=== PATIENT | female | born 1980 | race Caucasian/White ===

== ENCOUNTER 2023-06-04 10:34 | Outpatient (AMB) | payer OTHER, SELFPAY ==
--- NOTE | 2023-06-04 09:24 | MHC.OFFVISPS ---
Intake Vital Signs 06/04/23 09:24 Height 5 ft 7 in Weight 190 lb Intake Visit Reasons: Bipolar Depression, depression, SAVANNAH (generalized anxiety disorder), ADHD Utilities Operator Required: No Allergies No Known Allergies Allergy (Verified 06/04/23 09:26) Medication List - Last Reconciled 06/04/23 by Audra Corcoran APRN dextroamphetamine-amphetamine 15 mg ER (Adderall XR) 15 mg PO QAM dextroamphetamine-amphetamine 20 mg ER (Adderall XR) 20 mg PO .DAILY at noon ferrous gluconate 324 mg PO DAILY gabapentin 300 mg PO DAILY lamotrigine (Lamictal) 100 mg PO BID lamotrigine (Lamictal) 100 mg PO BID lithium carbonate ER 450 mg PO BEDTIME lurasidone (Latuda) 80 mg PO DAILY zolpidem ER (Ambien CR) 12.5 mg PO BEDTIME PRN HPI- Psychiatric Chief Complaint: Bipolar Depression, depression, SAVANNAH (generalized anxiety disorder), ADHD Intake Note: 42 yo with Bipolar disorder, SAVANNAH, and ADHD medication follow up re; lithium dose and continued ADHD symptoms HPI Narrative: Pt feels less depressed; she reports moderate anxiety; she feels the lithium has helped her mood and anxiety; she says it didn't help right away but about 4 weeks after she started it she felt much better and calmer. She was laid off from her job 8 weeks ago- it has been stressful financially but she enjoyed the time off and more time to be with son; more time for self care- she did more yoga and slept better. she has not used THC or ETOH for months.. she denies medical changes; no SI or HI; she expresses hope for future; she is eating well. she is active physically. she is need of a new therapist as her therapist moved. She has been taking it D and iron for vit d deficiency and anemai. 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 Pt describes cyclical depression - December- she gets very depressed, realized by age 29 that she had bipolar do; she reports 2020 hypo-shanelle, shopping, spending, sexual indiscretions Recently at [facility] - 12 day [facility] Apr 2019 after family tried to get her sectioned 34 for drug abuse because she was manic and using marijuana Failed Medication Trials: geodon - anxiety/weight/depression abilify-anxiety lamictal zoloft rx helped a little with depression prozac sleepy remeron ineffective cymbalta irrational manic antidepressants worsened lived in [place] took antidepressants during winter - in effective Panic attacks: Yes Agoraphobia: Yes Separation anxiety disorder: No Social phobia: No Specific phobia: No Hypochondriasis: No Body dysmorphic disorder: No Obsessive compulsive disorder: No Generalized anxiety: Yes Post traumatic stress disorder: No Acute stress disorder: No Previous psychiatric history: Yes Previous inpatient psychiatric hospitalization: Yes Other previous psychiatric treatment programs: partial hospital program History of suicidal ideation: Yes History of suicide attempt: No Medically hospitalized: No History of self injurious behavior: No History of violence: No Current/previous psychiatrist: [email or web address] Current/previous therapist: none Subjective Subjective Subjective Medication Compliance: Yes Side effects from medications: No Review of Systems Medical Review of Systems: unchanged Mental Status Exam Mental Status Exam Patient Appearance: Well Grooomed and Appropriate Patient Orientation: Person, Place, Time and Situation Level of Consciousness: Awake Patient Behavior: Appropriate and Crying (tearfulness when talking about less time with son) Mood Description: Calm and Constricted Affect Description: Calm and Constricted Patient Cognition Impaired: No Ability to Follow Directions: Good Speech Pattern: Clear and Coherent Memory Description: Intact Hallucinations: None Delusions: Not Present Thought Process: Intact, Goal Oriented and Linear Thought Content: positive for Intact and positive for Goal Oriented Judgement: Good Assessment and Plan Assessment & Plan (1) Generalized anxiety disorder: Code(s): F41.1 - Generalized anxiety disorder (2) Other technician terminal and repeater (current) drug therapy: Status: Acute Code(s): Z79.899 - Other technician terminal and repeater (current) drug therapy (3) Bipolar disorder with current episode depressed: Status: Acute Code(s): F31.30 - Bipolar disorder, current episode depressed, mild or moderate severity, unspecified (4) ADHD: Status: Acute Code(s): F90.9 - Attention-deficit hyperactivity disorder, unspecified type (5) Anemia: Status: Acute Code(s): D64.9 - Anemia, unspecified (6) Vitamin D deficiency: Status: Acute Code(s): E55.9 - Vitamin D deficiency, unspecified Plan discussed medications and need for lab work; reviewed lithium toxicity signs and symptoms; remineded re: need to stay hydrated; discussed duration of adderall XR - pt feels it works for approximately 6 hours- her work day is 11 hours- disucces increasing the second Er dose for longer duration. continue meds listed ordered labs if lithium level low will consider increase lamictal decreased to 100mg BID due to ineffective return in 6 weeks Medications: New dextroamphetamine-amphetamine 20 mg ER (Adderall XR) 20 mg PO .DAILY at noon 30 caps 0RF lithium carbonate ER 450 mg PO BEDTIME 30 tabs 1RF lurasidone (Latuda) must administer with food (at least 350 calories) 80 mg PO DAILY 30 tabs 3RF zolpidem ER (Ambien CR) 12.5 mg PO BEDTIME PRN 30 tabs 2RF sleep dextroamphetamine-amphetamine 15 mg ER (Adderall XR) 15 mg PO QAM 30 caps 0RF lamotrigine (Lamictal) 100 mg PO BID 60 tabs 1RF Orders: Orders Comprehensive [place]. Panel Fast Today Z79.899 - Other technician terminal and repeater (current) drug therapy [place] Today Z79.899 - Other custodial (current) drug therapy Vitamin D 25-OH (D2 and D3) Today E55.9 - Vitamin D deficiency, unspecified IRON PROFILE Today D64.9 - Anemia, unspecified Counseling and coordination of Care Pt. Self Management counseling: Exercise, Light exposure, Maintenance-social rhythm, Mindfulness, Mod caffeine/ETOH intake, Sleep hygiene, Behavior activation and Cognitive restructuring Details-Self Mgmt counseling: discussed strategies to reduce distress and guilt re: being away from son for long work days discussed cognitive strategies to manage ADHD Medication management counseling: Effectiveness, Side effects, Dosing range, Duration, Drug interaction and Adherence Diagnosis and Prognosis Counseling: Accuracy of diagnosis, Prognosis over time, Impact of diagnosis on life functions, Impact of family relationship, Problematic behaviors secondary to diagnosis and Adequacy of current interventions Details: I spent 45 minutes reviewing the record, seeing the patient and documenting in the medical record. Counseling provided to the patient/caregiver as outlined below. Addressed patient/caregiver concerns regarding current medication regime including effective adherence. Addressed patient/caregiver concerns regarding diagnosis and prognosis including accuracy of diagnosis, prognosis over time, impact of diagnosis. Addressed patient/caregiver concerns regarding impact of recent stressors. [facility] Medical History (Updated 06/04/23 @ 13:07 by Audra Corcoran APRN) Stroke with migraine Social History: lives with and teenage son; works FT Substance History: episodic THC use Trauma History: mother had bipolar disorder and childhood was chaotic Coding Level of Care Code Est Pt Level 5 (27540) Diagnoses Generalized anxiety disorder F41.1 Other custodial (current) drug therapy Z79.899 Bipolar disorder with current episode depressed F31.30 ADHD F90.9 Anemia D64.9 Vitamin D deficiency E55.9
== END 2023-06-04 11:45 | disposition home or self-care (01) ==
LOC: HO.HOP 10:35
PROVIDERS: PCP Nurse Practitioner Family; Visit Provider Clinical Nurse Specialist Psychiatric/Mental Health
DX: F41.1 Generalized anxiety disorder (principal); Z79.899 Other long term (current) drug therapy; F31.30 Bipolar disorder, current episode depressed, mild or moderate severity, unspecified; F90.9 Attention-deficit hyperactivity disorder, unspecified type; D64.9 Anemia, unspecified; E55.9 Vitamin D deficiency, unspecified
CPT/HCPCS: 99215

== ENCOUNTER → 2023-06-04 10:34 | Outpatient (BNVA) | payer OTHER, SELFPAY | PROVIDERS: PCP Nurse Practitioner Family; Visit Provider Clinical Nurse Specialist Psychiatric/Mental Health ==

== ENCOUNTER 2023-07-18 15:37 | Outpatient (AMB) | payer OTHER, SELFPAY ==
--- NOTE | 2023-07-18 09:19 | A.OFFPSYCH_ITS ---
Intake Intake Visit Reasons: depression, ADHD, anxiety, constipation Intake Note: 42 yo woman with bipolar disorder most recent episode depressed, ADHD, and SAVANNAH Corporate Development Manager Required: No Allergies No Known Allergies Allergy (Verified 06/04/23 09:26) Medication List - Last Reconciled 07/18/23 by Audra Corcoran APRN dextroamphetamine-amphetamine 15 mg ER (Adderall XR) 15 mg PO QAM dextroamphetamine-amphetamine 20 mg ER (Adderall XR) 20 mg PO QAM ferrous gluconate 324 mg PO DAILY gabapentin 300 mg PO DAILY lamotrigine (Lamictal) 100 mg PO BID lithium carbonate ER 600 mg (2 x 300 mg) PO BEDTIME lurasidone (Latuda) 80 mg PO DAILY zolpidem ER (Ambien CR) 12.5 mg PO BEDTIME PRN HPI- Psychiatric Chief Complaint: depression, ADHD, anxiety, constipation HPI Narrative: pt reports mood improved; more stable, less depressed; less anxious,; focus and recall not good since starting new job- often works 12+ hours a day. pt reports recurrence of constipatioon; she is reluctant to follow up with PCP and gastroeneterologist; she si taking miralax and senna. she denies SI or HI. no evidence of shanelle; no etoh or THC use. 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 Pt describes cyclical depression - December - July- she gets very depressed, realized by age 29 that she had bipolar do; she reports 2019 hypo-shanelle, shopping, spending, sexual indiscretions Recently at [facility] - 12 day [facility] Apr 2019 after family tried to get her sectioned 34 for drug abuse because she was manic and using marijuana Failed Medication Trials: indydon - anxiety/weight/depression abilify-anxiety lamictal zoloft rx helped a little with depression prozac sleepy remeron ineffective cymbalta irrational manic antidepressants worsened lived in [place] took antidepressants during winter - in effective Subjective Subjective Subjective Medication Compliance: Yes Side effects from medications: No Review of Systems Medical Review of Systems: unchanged Mental Status Exam Mental Status Exam Patient Appearance: Well Grooomed and Appropriate Patient Orientation: Person, Place, Time and Situation Level of Consciousness: Appropriate Patient Behavior: Appropriate and Cooperative Mood Description: Flat Affect Description: Flat Patient Cognition Impaired: No Ability to Follow Directions: Good Speech Pattern: Clear and Appropriate Memory Description: Intact Hallucinations: None Delusions: Not Present Thought Process: Intact and Goal Oriented Thought Content: positive for Intact and positive for Goal Oriented Judgement: Good Telehealth Telehealth Telehealth Platform: Other (please specify) (Practice Management [email or web address]) Location of provider rendering services: practice address Location of patient: other (work in [facility] ) Patient Identification confirmed using: Name, : Yes Telehealth method: video Patient verbally consented to treatment: Yes Patient verbally consented to billing insurance company: Yes Patient informed of any privacy concerns related to visit: Yes Minutes spent on Phone/Video with Pt.: 25 Assessment and Plan Assessment & Plan (1) ADHD: Status: Acute Qualifiers: Attention deficit-hyperactivity disorder type: combined inattentive- hyperactive Qualified Code(s): F90.2 - Attention-deficit hyperactivity disorder, combined type Code(s): F90.9 - Attention-deficit hyperactivity disorder, unspecified type (2) Bipolar disorder with current episode depressed: Status: Acute Qualifiers: Current episode severity: moderate Qualified Code(s): F31.32 - Bipolar disorder, current episode depressed, moderate Code(s): F31.30 - Bipolar disorder, current episode depressed, mild or moderate severity, unspecified Plan continue medications as is stay hydrated eaat fiber and 3 meals a day- fruits and vegetable buffered vitamin C 1000mg twice a day magnesium citrate 250 mg daily restart probiotic consider following FODMAP diet for no more than 6-8 weeks call PCP and or gastroenterology in 1- 2 weeks if constipation continues Medications: Refilled dextroamphetamine-amphetamine 15 mg ER (Adderall XR) Partial Fill upon patient request. 15 mg PO QAM 30 caps 0RF lamotrigine (Lamictal) 100 mg PO BID 60 tabs 1RF dextroamphetamine-amphetamine 20 mg ER (Adderall XR) Partial Fill upon patient request. 20 mg PO QAM 30 caps 0RF lithium carbonate ER 600 mg (2 x 300 mg) PO BEDTIME 60 tabs 1RF lurasidone (Latuda) must administer with food (at least 350 calories) 80 mg PO DAILY 30 tabs 3RF zolpidem ER (Ambien CR) 12.5 mg PO BEDTIME PRN 30 tabs 2RF sleep Counseling and coordination of Care Pt. Self Management counseling: Nutrition education and improvement and Problem solving Medication management counseling: Effectiveness, Side effects, Dosing range, Duration, Drug interaction, Adherence and Other (management of side effects) Diagnosis and Prognosis Counseling: Accuracy of diagnosis, Prognosis over time, Impact of diagnosis on life functions, Impact of family relationship, Problematic behaviors secondary to diagnosis and Adequacy of current interventions Details: I spent 45 minutes reviewing the record, seeing the patient and documenting in the medical record. Counseling provided to the patient/caregiver as outlined below. Addressed patient/caregiver concerns regarding current medication regime including effective adherence. Addressed patient/caregiver concerns regarding diagnosis and prognosis including accuracy of diagnosis, prognosis over time, impact of diagnosis. Addressed patient/caregiver concerns regarding impact of recent stressors. [facility] Medical History Stroke with migraine Social History: lives with and teenage son; works FT Substance History: episodic THC use Trauma History: mother had bipolar disorder and childhood was chaotic Coding Level of Care Code Tele Est Pt Level 5 (18236) Diagnoses Attention deficit hyperactivity disorder (ADHD), combined type F90.2 Attention deficit-hyperactivity disorder type: combined inattentive- hyperactive Bipolar affective disorder, currently depressed, moderate F31.32 Current episode severity: moderate
== END 2023-07-18 15:39 | disposition home or self-care (01) ==
LOC: HO.HOP 15:37
PROVIDERS: PCP Nurse Practitioner Family; Visit Provider Clinical Nurse Specialist Psychiatric/Mental Health
DX: F31.32 Bipolar disorder, current episode depressed, moderate (principal); F90.2 Attention-deficit hyperactivity disorder, combined type
CPT/HCPCS: 99214

== ENCOUNTER → 2023-07-18 15:37 | Outpatient (BNVA) | payer OTHER, SELFPAY | PROVIDERS: PCP Nurse Practitioner Family; Visit Provider Clinical Nurse Specialist Psychiatric/Mental Health ==

== ENCOUNTER 2023-10-17 17:50 | Outpatient (AMB) | payer OTHER, SELFPAY ==
--- NOTE | 2023-10-17 13:54 | A.OFFPSYCH_ITS ---
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 Allergies No Known Allergies Allergy (Verified 06/04/23 09:26) Medication List - Last Reconciled 10/17/23 by Audra Corcoran APRN dextroamphetamine-amphetamine 15 mg ER (Adderall XR) 15 mg PO QNOON dextroamphetamine-amphetamine 20 mg ER (Adderall XR) 20 mg PO QAM ferrous gluconate 324 mg PO DAILY gabapentin 300 mg PO DAILY lamotrigine (Lamictal) 100 mg PO BID lithium carbonate ER 600 mg (2 x 300 mg) PO BEDTIME lurasidone (Latuda) 80 mg PO DAILY zolpidem ER (Ambien CR) 12.5 mg PO BEDTIME PRN HPI- Psychiatric Chief Complaint: depression HPI Narrative: pt reports improvement in mood; she feels happy; she says mood stable; lithium seems to be a game changer. she is enjoying spending time with family and friends; she likes her job. she is sleeping well. no side effects; she is being evaluated fro endometriosis. no SI or Hi Labs done in June and will repeat in December Past Psychiatric History: Pt diagnosed with bipolar disorder and states she is anxious and that anxiety is a trigger for depression phase; she starts to isolate, stops functioning and has more negative thoughts, she has decrease interest in sex; stays in bed,; when she is manic she says she is overly emphatic, it feels pretty normal to her; she is typically an over-sharer and gets involved in others' business; she can be a little angry and irritable, high energy, she is very social normally, had an open marriage but not really ok with it; she is into yoga and meditation, 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 Pt describes cyclical depression - December - July- she gets very depressed, realized by age 29 that she had bipolar do; she reports 2019 hypo-shanelle, shopping, spending, sexual indiscretions Recently at [facility] - 12 day [facility] Apr 2019 after family tried to get her sectioned 34 for drug abuse because she was manic and using marijuana Failed Medication Trials: geodon - anxiety/weight/depression abilify-anxiety lamictal zoloft rx helped a little with depression prozac sleepy remeron ineffective cymbalta irrational manic antidepressants worsened lived in [place] took antidepressants during winter - in effective Subjective Subjective Subjective Medication Compliance: Yes Side effects from medications: No Review of Systems Medical Review of Systems: unchanged Mental Status Exam Mental Status Exam Patient Appearance: Well Grooomed and Appropriate Patient Orientation: Person, Place, Time and Situation Level of Consciousness: Awake Patient Behavior: Appropriate Mood Description: Calm, Happy and Appropriate Affect Description: Calm, Happy and Appropriate Patient Cognition Impaired: No Ability to Follow Directions: Good Speech Pattern: Clear Memory Description: Intact Hallucinations: None Delusions: Not Present Thought Process: Intact and Goal Oriented Thought Content: positive for Intact and positive for Goal Oriented Judgement: Good Telehealth Telehealth Telehealth Platform: Other (please specify) (Sk[employer]) Location of provider rendering services: practice address Location of patient: address on file Patient Identification confirmed using: Name, : Yes Telehealth method: video Patient verbally consented to treatment: Yes Patient verbally consented to billing insurance company: Yes Patient informed of any privacy concerns related to visit: Yes Minutes spent on Phone/Video with Pt.: 30 Assessment and Plan Assessment & Plan (1) Bipolar disorder, currently in remission: Status: Acute Code(s): F31.70 - Bipolar disorder, currently in remission, most recent episode unspecified (2) ADHD: Status: Acute Qualifiers: Attention deficit-hyperactivity disorder type: combined inattentive- hyperactive Qualified Code(s): F90.2 - Attention-deficit hyperactivity disorder, combined type Code(s): F90.9 - Attention-deficit hyperactivity disorder, unspecified type Medications: Refilled dextroamphetamine-amphetamine 20 mg ER (Adderall XR) Partial Fill upon patient request. 20 mg PO QAM 30 caps 0RF lithium carbonate ER 600 mg (2 x 300 mg) PO BEDTIME 60 tabs 1RF zolpidem ER (Ambien CR) 12.5 mg PO BEDTIME PRN 30 tabs 2RF sleep dextroamphetamine-amphetamine 15 mg ER (Adderall XR) Partial Fill upon patient request. 15 mg PO QNOON 30 caps 0RF lamotrigine (Lamictal) 100 mg PO BID 60 tabs 1RF lurasidone (Latuda) must administer with food (at least 350 calories) 80 mg PO DAILY 30 tabs 3RF Counseling and coordination of Care Details: I spent [] minutes reviewing the record, seeing the patient and documenting in the medical record. Counseling provided to the patient/caregiver as outlined below. Addressed patient/caregiver concerns regarding current medication regime including effective adherence. Addressed patient/caregiver concerns regarding diagnosis a nd prognosis including accuracy of diagnosis, prognosis over time, impact of diagnosis. Addressed patient/caregiver concerns regarding impact of recent stressors. [facility] Medical History Stroke with migraine Social History: lives with and teenage son; works FT Substance History: episodic THC use Trauma History: mother had bipolar disorder and childhood was chaotic Coding Level of Care Code Tele Est Pt Level 4 (32892) Diagnoses Bipolar disorder, currently in remission F31.70 Attention deficit hyperactivity disorder (ADHD), combined type F90.2 Attention deficit-hyperactivity disorder type: combined inattentive- hyperactive
== END 2023-10-17 17:51 | disposition home or self-care (01) ==
LOC: HO.HOP 17:50
PROVIDERS: PCP Nurse Practitioner Family; Visit Provider Clinical Nurse Specialist Psychiatric/Mental Health
DX: F31.70 Bipolar disorder, currently in remission, most recent episode unspecified (principal); F90.2 Attention-deficit hyperactivity disorder, combined type
CPT/HCPCS: 99214

== ENCOUNTER → 2023-10-17 17:50 | Outpatient (BNVA) | payer OTHER, SELFPAY | PROVIDERS: PCP Nurse Practitioner Family; Visit Provider Clinical Nurse Specialist Psychiatric/Mental Health | DX: F31.70 Bipolar disorder, currently in remission, most recent episode unspecified (principal); F90.2 Attention-deficit hyperactivity disorder, combined type ==

== ENCOUNTER 2024-04-23 13:36 | Outpatient (AMB) | payer OTHER, SELFPAY ==
--- NOTE | 2024-04-23 13:10 | MHC.OFFVISPS ---
Intake Intake Visit Reasons: depression Boat Crew Deck Hand Required: No Allergies No Known Allergies Allergy (Verified 06/04/23 09:26) Medication List - Last Reconciled 04/23/24 by Audra Corcoran APRN dextroamphetamine-amphetamine 15 mg ER (Adderall XR) 15 mg PO QNOON dextroamphetamine-amphetamine 20 mg ER (Adderall XR) 20 mg PO QAM ferrous gluconate 324 mg PO DAILY gabapentin 300 mg PO DAILY lamotrigine (Lamictal) 100 mg PO BID lithium carbonate ER 600 mg (2 x 300 mg) PO BEDTIME lurasidone (Latuda) 80 mg PO DAILY zolpidem ER (Ambien CR) 12.5 mg PO BEDTIME PRN HPI- Psychiatric Chief Complaint: depression HPI Narrative: pt reports feeliing more depressed over past 2-3 months; she had been using marijuana more but stopped one month ago; she reports depression feels a 5/10 . anxiety is moderate; she is compliant with meds; she got blood work done in mar 2024. labs reviewed; kidney and liver function good; tsh good; lithium level 0.6 in the theraputic range. 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 Pt describes cyclical depression - December - July- she gets very depressed, realized by age 29 that she had bipolar do; she reports 2019 hypo-shanelle, shopping, spending, sexual indiscretions Recently at [facility] - 12 day [facility] Apr 2019 after family tried to get her sectioned 34 for drug abuse because she was manic and using marijuana Failed Medication Trials: geodon - anxiety/weight/depression abilify-anxiety lamictal zoloft rx helped a little with depression prozac sleepy remeron ineffective cymbalta irrational manic antidepressants worsened lived in [place] took antidepressants during winter - in effective Subjective Subjective Subjective Medication Compliance: Yes Side effects from medications: No Review of Systems Medical Review of Systems: unchanged Mental Status Exam Mental Status Exam Patient Appearance: Well Grooomed and Appropriate Patient Orientation: Person, Place, Time and Situation Level of Consciousness: Awake, Appropriate and Alert Patient Behavior: Appropriate Mood Description: Flat Affect Description: Flat Patient Cognition Impaired: No Ability to Follow Directions: Good Speech Pattern: Clear and Appropriate Memory Description: Intact Hallucinations: None Delusions: Not Present Thought Process: Intact and Goal Oriented Thought Content: positive for Intact and positive for Goal Oriented Judgement: Good Telehealth Telehealth Telehealth Platform: Other (please specify) ([email or web address]) Location of provider rendering services: practice address Location of patient: address on file Patient Identification confirmed using: Name, : Yes Telehealth method: video Patient verbally consented to treatment: Yes Patient verbally consented to billing insurance company: Yes Patient informed of any privacy concerns related to visit: Yes Minutes spent on Phone/Video with Pt.: 35 Assessment and Plan Assessment & Plan (1) Bipolar disorder with current episode depressed: Status: Acute Qualifiers: Current episode severity: moderate Qualified Code(s): F31.32 - Bipolar disorder, current episode depressed, moderate Code(s): F31.30 - Bipolar disorder, current episode depressed, mild or moderate severity, unspecified (2) ADHD: Status: Acute Qualifiers: Attention deficit-hyperactivity disorder type: combined inattentive-hyperactive Qualified Code(s): F90.2 - Attention-deficit hyperactivity disorder, combined type Code(s): F90.9 - Attention-deficit hyperactivity disorder, unspecified type (3) SAVANNAH (generalized anxiety disorder): Status: Acute Code(s): F41.1 - Generalized anxiety disorder Plan start zoloft 25mg daily retrun in 3 months call sooner if symptoms worsen Medications: New sertraline (Zoloft) 25 mg PO DAILY 30 tabs 2RF Refilled dextroamphetamine-amphetamine 15 mg ER (Adderall XR) Partial Fill upon patient request. 15 mg PO QNOON 30 caps 0RF lamotrigine (Lamictal) 100 mg PO BID 60 tabs 1RF lithium carbonate ER 600 mg (2 x 300 mg) PO BEDTIME 60 tabs 1RF lurasidone (Latuda) must administer with food (at least 350 calories) 80 mg PO DAILY 30 tabs 3RF zolpidem ER (Ambien CR) 12.5 mg PO BEDTIME PRN 30 tabs 2RF sleep dextroamphetamine-amphetamine 20 mg ER (Adderall XR) Partial Fill upon patient request. 20 mg PO QAM 30 caps 0RF Counseling and coordination of Care Pt. Self Management counseling: Exercise, Maintenance-social rhythm, Mod caffeine/ETOH intake, Nutrition education and improvement, Sleep hygiene, Behavior activation, General coping skills and Problem solving Medication management counseling: Effectiveness, Side effects, Dosing range, Duration, Drug interaction and Adherence Diagnosis and Prognosis Counseling: Accuracy of diagnosis, Prognosis over time, Impact of diagnosis on life functions, Impact of family relationship, Problematic behaviors secondary to diagnosis and Adequacy of current interventions Details: I spent 40 minutes reviewing the record, seeing the patient and documenting in the medical record. Counseling provided to the patient/caregiver as outlined below. Addressed patient/caregiver concerns regarding current medication regime including effective adherence. Addressed patient/caregiver concerns regarding diagnosis and prognosis including accuracy of diagnosis, prognosis over time, impact of diagnosis. Addressed patient/caregiver concerns regarding impact of recent stressors. [facility] Medical History (Updated 04/23/24 @ 14:46 by Audra Corcoran APRN) Bipolar disorder, currently in remission Stroke with migraine Social History: lives with and teenage son; works FT Substance History: episodic THC use Trauma History: mother had bipolar disorder and childhood was chaotic Coding Level of Care Code Tele Est Pt Level 4 (41077) Diagnoses Bipolar affective disorder, currently depressed, moderate F31.32 Current episode severity: moderate Attention deficit hyperactivity disorder (ADHD), combined type F90.2 Attention deficit-hyperactivity disorder type: combined inattentive-hyperactive SAVANNAH (generalized anxiety disorder) F41.1
--- OUTSIDE RECORDS SUMMARY | 2024-04-23 14:01 | XMS_ITS | Patient Health Record ---
Author Organization [facility] Address [address] [place] [address] Care Team Providers Care Dental Laboratory Assistant Name Role Phone Ivana, Julia Primary Care Provider Unavailabl e Reason For Referral No Information Medications Medication SIG (Take, Route, Frequency, Duration) Notes Start Date End Date Status Ibuprofen 600 MG 1 tablet with food o r milk as needed Orally Three times a day Active ProAir HFA 108 (90 Base) MCG/ACT 1 puff as needed Inhalation every 4 hrs Active NexIUM 20 MG 1 capsule Orally Onc e a day Active Lunesta 3 MG 1 tablet immediately before bedtime Orally Once a day Active lamoTRIgine 100 MG 1 tablet Orally Once a day Active Claritin 10 MG 1 tablet Orally Once a day Active Acidophilus - as directed Orally Active Diclofenac Sodium 1 % 4 grams Transderma l to painful area of foot Twice a day for 30 day(s) Active Latuda 80 MG 1 tablet with food O rally Once a day Active Gabapentin 300 MG 1 capsule Orally Onc e a day Active Flovent Diskus 100 MCG/BLIST 1 puff Inhalation Twice a day Active Problems Problem Type SNOMED Code ICD Code Onset Dates Problem Status W/U Status Risk Notes Problem [id number] Equinus deformity of right foot (M21.6X1) Active confirmed Problem [id number] Equinus deformity of left foot (M21.6X2) Active confirmed Plan Of Treatment Pending Test Test Name Order Date X ray : Foot, left 3v 01/10/2020 X ray : Foot, right 3v 01/10/2020 INJ TENDON SHEATH/LIGAMENT/FASCIA 2019 INJ TENDON SHEATH/LIGAMENT/FASCIA 2019 Pneumati walking boot prefab 02/14/2020 Insurance Providers Payer Name Payer Address Payer Phone Subscriber Number Group Number Insured Name Patient Relationship to Insured Coverage Start Date Coverage End Date [facility] [address] [address] [place] [address] [phone] [id number] Brooklyn Falk Self - patient is the insured Medications Administered Medication Instructions Date of Administration Dosage Notes Dexamethasone 01/10/2020 4 mg Dexamethasone 03/15/2020 Kenalog 01/10/2020 40 mg Kenalog 03/15/2020 Medical (General) History Medical History History ICD Code allergic rhinitis anxiety asthma bipolar depression cataplexy and narcolepsy chronic migraine chronic sinusitis cigarette smoker deviated nasal septum gastro-esophageal reflux hypermobility of joint hypersomnia insomnia obese other disorders of iron metabolism periodic limb movement disorder restless leg syndrome Surgical History Surgery Date(Month/Year) precancerous lesions removed from cervix 1995
--- OUTSIDE RECORDS SUMMARY | 2024-04-23 14:01 | XMS_ITS | Clinical Summary ---
Author Organization [facility] Address [address] [place] [address] Care Team Providers Care Marketing Consultant Name Role Phone Julia Heath NP Primary Care Provider [phone] Social History Tobacco Use Types Packs/Day Years Used Date Smoking Tobacco: Never Assessed Sex and Gender Information Value Date Recorded Sex Assigned at Not on file Gender Identity Not on file Sexual Orientation Not on file Plan of Treatment Health Maintenance Due Date Last Done Comments Hepatitis C Virus Screening 1979 HIV Screening 08/17/1992 DTaP/Tdap/Td Vaccines (1 - Tdap) 08/17/1998 Hepatitis B Vaccines (1 of 3 - 19+ 3-dose series) 08/17/1998 COVID-19 Vaccine ( - 2023-2 5 season) 2023 HPV Vaccines Aged Out No longer eligi ble based on patient's age to complete this topic Pneumococcal Vaccine: Pediat sherlyn (0-5 Years) and At-Risk Patients (6 to 49 Years) Aged Out No longer eligible b ased on patient's age to complete this topic Care Teams Marketing Consultant Relationship Specialty Start Date End Date Julia Heath NP [facility] [place] [address] PCP - General
--- OUTSIDE RECORDS SUMMARY | 2024-04-23 14:02 | XMS_ITS | Clinical Summary ---
Author Organization [facility] Address [address] [place] [address] Care Team Providers Care Textile Machinery Instructor Name Role Phone IvanaJulia NP Primary Care Provider [phone] Allergies No known active allergies Medications eszopiclone (LUNESTA) tablet 0 8 Active gabapentin (NEURONTIN) 300 MG capsule 0 8 Active Adderall XR 30 mg 24 hr capsule 1 Active dextroamphetami ne-amphetamine 20 mg tab 1 Active ferrous gluconate (FERGON) 324 MG tablet TAKE 1 TABLET BY MOUTH DAILY 1 Active Flovent Diskus 100 mcg/actuation dsdv INHALE 1 PUFF BY MOUTH TWICE DAILY. RINSE MOUTH AND THROAT AFTER USE 1 Active lamoTRIgine (LaMICtal) 200 MG tablet 1 Active Latuda 80 mg tab TAKE 1 TABLET BY MOUTH DAILY WITH FOOD 1 Active albuterol (VENTOLIN HFA) 90 mcg/actuation inhaler INHALE 2 PUFFS BY MOUTH FOUR TIMES DAILY NEEDED FOR WHEEZING 3 Active esomeprazole (NexIUM) 20 MG capsule Take 1 capsule (20 mg total) by mouth 0 Active lithium (ESKALITH) 450 MG CR tablet 3 Active lithium (ESKALITH) 450 MG CR tablet Take 1 tablet (450 mg total) by mouth 3 Active loratadine (CLARITIN) 10 mg tablet Take 1 tablet (10 mg total) by mouth 6 Active zolpidem (AMBIEN CR) 12.5 MG CR tablet 3 Active zolpidem (AMBIEN CR) 12.5 MG CR tablet 0 Refills, Maintenance, 11/30/21 14:28:00 EDT, Partial fill upon patient request if the prescription is for a schedule II opioid drug. 2 Active amphetamine-dex troamphetamine (ADDERALL XR) 15 MG 24 hr capsule TAKE 1 CAPSULE BY MOUTH TWICE DAILY AT 5 AM AND AT NOON 3 Active amphetamine-dex troamphetamine (ADDERALL XR) 15 MG 24 hr capsule Take 1 capsule (15 mg total) by mouth 3 Active lamoTRIgine (LaMICtal) 100 MG tablet Take 1 tablet (100 mg total) by mouth 3 Active lamoTRIgine (LaMICtal) 200 MG tablet Take 1 tablet (200 mg total) by mouth 3 Active lurasidone (Latuda) 80 mg tab Take 80 mg by mouth 0 Active amphetamine-dex troamphetamine (ADDERALL XR) 20 MG 24 hr capsule TAKE 1 CAPSULE BY MOUTH EVERY MORNING 4 Active lithium (LITHOBID) 300 MG CR tablet 4 Active Social History Tobacco Use Types Packs/Day Years Used Date Smoking Tobacco: Former Cigarettes Smokeless Tobacco: Never Tobacco Cessation:Counseling Given: Not Answered Comments:congratulated Comments No Sex and Gender Information Value Date Recorded Sex Assigned at Not on file Legal Sex Female 11:51 AM EDT Gender Identity Not on file Sexual Orientation Not on file Last Filed Vital Signs Vital Sign Reading Time Taken Comments Blood Pressure 130/80 09/04/2023 4:06 PM EDT Pulse 73 09/04/2023 4:06 PM EDT Temperature 36.9 ??C (98.4 ??F) 09/04/2023 4:06 PM ED T Respiratory Rate 14 09/04/2023 4:06 PM EDT Oxygen Saturation 98% 09/04/2023 4:06 PM EDT Inhaled Oxygen Concentration - - Weight 81.6 kg (180 lb) 07/10/2023 11:01 AM EDT Height 168.9 cm (5' 6.5 ) 07/10/2023 11:01 AM ED T Body Mass Index 28.62 07/10/2023 11:01 AM EDT Plan of Treatment Health Maintenance Due Date Last Done Comments Depression: Screening Annually using PHQ-2/9 in Adults 18 yrs or above (or HM Modifier)([facility]) 08/17/1997 Hepatitis C Virus Infection in Adolescents and Adults: Screening (or Modifier) ([facility]) 08/17/1997 SDOH Screening Reminder: Annually for all adults ([facility]) 08/17/1997 Lipid Screening: Once for Women aged 20 to 45 yrs ([facility]) 1999 Cervical Cancer Screenin-65 yrs of age (or Modifier) 08/17/2000 Cervical Cancer Screening: Pap every 3 yrs pts age 21-65 08/17/2000 Cervical Cancer: Pap Screening with Modifier timing ([facility]) 08/17/2000 Cervical Cancer: hrHPV alone or with cotesting Pap for Pts 30-65yrs screening every 5yrs ([facility]) 08/17/2000 Flu Vaccination: Yearly for ages 18mos through 64 years (or Modifier)([facility]) 10/16/2023 COVID-19 Vaccine Screening: Initial Series and Booster Status ([facility]) (2023- season) 2023 08/05/2020, 07/21/2020, 06/29/2020 Zoster/Shingles Vaccine Series Screening: Adults aged 18+ yrs (or HM Modifiers)([facility]) (1 of 2) 08/17/2029 DTaP/Tdap/Td Vaccines ([facility]) (3 - Td or Tdap) 08/22/2030 08/22/2020, 12/03/2010 Pneumococcal Vaccination Screening: Pts 0-19 & 19-64 yrs of age ([facility]) Aged Out 02/11/2023, 02/04/2019 No longer eligible based on patient's age to complete this topic Medical Devices Not on file Insurance [employer] Care Teams Textile Machinery Instructor Relationship Specialty Start Date End Date Julia Heath NP [address] [place] [address] PCP - Mold Stripper 08/03/17
== END 2024-04-23 13:37 | disposition home or self-care (01) ==
LOC: HO.HOP 13:36
PROVIDERS: PCP Nurse Practitioner Family; Visit Provider Clinical Nurse Specialist Psychiatric/Mental Health
DX: F31.32 Bipolar disorder, current episode depressed, moderate (principal); F90.2 Attention-deficit hyperactivity disorder, combined type; F41.1 Generalized anxiety disorder
CPT/HCPCS: 99214

== ENCOUNTER → 2024-04-23 13:36 | Outpatient (BNVA) | payer OTHER, SELFPAY | PROVIDERS: PCP Nurse Practitioner Family; Visit Provider Clinical Nurse Specialist Psychiatric/Mental Health | DX: F31.70 Bipolar disorder, currently in remission, most recent episode unspecified (principal); F90.2 Attention-deficit hyperactivity disorder, combined type; Z79.899 Other long term (current) drug therapy ==

== ENCOUNTER 2024-07-22 13:58 | Outpatient (AMB) | payer OTHER, SELFPAY ==
--- NOTE | 2024-07-22 14:13 | A.OFFPSYCH_ITS ---
Intake Intake Visit Reasons: depression Housekeeping And Laundry Team Leader Required: No Allergies No Known Allergies Allergy (Verified 06/04/23 09:26) Medication List - Last Reconciled 07/22/24 by Audra Corcoran APRN dextroamphetamine-amphetamine 15 mg ER (Adderall XR) 15 mg PO QNOON dextroamphetamine-amphetamine 20 mg ER (Adderall XR) 20 mg PO QAM eszopiclone (Lunesta) 3 mg PO BEDTIME ferrous gluconate 324 mg PO DAILY gabapentin 300 mg PO DAILY lamotrigine (Lamictal) 100 mg PO BID lithium carbonate ER 600 mg (2 x 300 mg) PO BEDTIME lurasidone (Latuda) 80 mg PO DAILY trazodone 50 mg PO BEDTIME PRN HPI- Psychiatric Chief Complaint: depression HPI Narrative: pt reports mood stable and improved; she stopped the sertraline a month ago as she felt she didn't need ti. she is busy at work and this helps her energy and mood; she enjoys gardening. she reports difficulty sleeping; she is taking ambien CR 12.5mg and is still waking in midle of the night; she has been taking an old rx of trazodone 25mg in middle of night to go back to sleep with good effects. she reports functioning well; she denies shanelle; no pressured speech or elation noted; Pt denies SI or HI Past Psychiatric History: Pt diagnosed with bipolar disorder and states she is anxious and that anxiety is a trigger for depression phase; she starts to isolate, stops functioning and has more negative thoughts, she has decrease interest in sex; stays in bed,; when she is manic she says she is overly em phatic, it feels pretty normal to her; she is typically an over-sharer and gets involved in others' business; she can be a little angry and irritable, high energy, she is very social normally, had an open marriage but not really ok with it; she is into yoga and meditation, 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 Pt describes cyclical depression - December - July- she gets very depressed, realized by age 29 that she had bipolar do; she reports 2019 hypo-shanelle, shopping, spending, sexual indiscretions Recently at [facility] - 12 day [facility] Apr 2019 after family tried to get her sectioned 35 for drug abuse because she was manic and using marijuana Failed Medication Trials: geodon - anxiety/weight/depression abilify-anxiety lamictal zoloft rx helped a little with depression prozac sleepy remeron ineffective cymbalta irrational manic antidepressants worsened lived in [place] took antidepressants during winter - in effective Subjective Subjective Subjective Medication Compliance: Yes Side effects from medications: No Review of Systems Medical Review of Systems: unchanged Mental Status Exam Mental Status Exam Patient Appearance: Well Grooomed and Appropriate Patient Orientation: Person, Place, Time and Situation Level of Consciousness: Awake Patient Behavior: Appropriate and Cooperative Mood Description: Happy and Cheerful Affect Description: Happy and Cheerful Patient Cognition Impaired: No Ability to Follow Directions: Excellent Speech Pattern: Clear Memory Description: Intact Hallucinations: None Delusions: Not Present Thought Process: Intact Thought Content: positive for Intact Judgement: Good Telehealth Telehealth Telehealth Platform: Other (please specify) ([email or web address]) Location of provider rendering services: practice address Location of patient: other (in her car at work in the [facility] ) Patient Identification confirmed using: Name, : Yes Telehealth method: video Patient verbally consented to treatment: Yes Patient verbally consented to billing insurance company: Yes Patient informed of any privacy concerns related to visit: Yes Minutes spent on Phone/Video with Pt.: 25 Assessment and Plan Assessment & Plan (1) SAVANNAH (generalized anxiety disorder): Status: Acute Code(s): F41.1 - Generalized anxiety disorder (2) ADHD: Status: Acute Qualifiers: Attention deficit-hyperactivity disorder type: combined inattentive- hyperactive Qualified Code(s): F90.2 - Attention-deficit hyperactivity disorder, combined type Code(s): F90.9 - Attention-deficit hyperactivity disorder, unspecified type (3) Bipolar disorder with current episode depressed: Status: Acute Qualifiers: Current episode severity: moderate Qualified Code(s): F31.32 - Bipolar disorder, current episode depressed, moderate Code(s): F31.30 - Bipolar disorder, current episode depressed, mild or moderate severity, unspecified Plan stop ambien and restar tlunesta 3mg at bedtime use trazodone prn continue other meds as per below follow up in 3 months Medications: New trazodone 50 mg PO BEDTIME PRN 30 tabs 3RF sleep eszopiclone (Lunesta) 3 mg PO BEDTIME 30 tabs 2RF Refilled lurasidone (Latuda) must administer with food (at least 350 calories) 80 mg PO DAILY 30 tabs 3RF lithium carbonate ER 600 mg (2 x 300 mg) PO BEDTIME 60 tabs 1RF lamotrigine (Lamictal) 100 mg PO BID 60 tabs 1RF dextroamphetamine-amphetamine 20 mg ER (Adderall XR) Partial Fill upon patient request. 20 mg PO QAM 30 caps 0RF dextroamphetamine-amphetamine 15 mg ER (Adderall XR) Partial Fill upon patient request. 15 mg PO QNOON 30 caps 0RF Discontinued sertraline (Zoloft) Discontinued Reason: Patient no longer taking 25 mg PO DAILY 30 tabs 2RF Counseling and coordination of Care Pt. Self Management counseling: Maintenance-social rhythm, Mod caffeine/ETOH intake, Nutrition education and improvement, Sleep hygiene and General coping skills Medication management counseling: Effectiveness, Side effects, Dosing range, Duration, Drug interaction and Adherence Diagnosis and Prognosis Counseling: Accuracy of diagnosis, Prognosis over time, Impact of diagnosis on life functions, Impact of family relationship, Problematic behaviors secondary to diagnosis and Adequacy of current interventions Details: I spent 35 minutes reviewing the record, seeing the patient and documenting in the medical record. Counseling provided to the patient/caregiver as outlined below. Addressed patient/caregiver concerns regarding current medication regime including effective adherence. Addressed patient/caregiver concerns regarding diagnosis and prognosis including accuracy of diagnosis, prognosis over time, impact of diagnosis. Addressed patient/caregiver concerns regarding impact of recent stressors. [facility] Medical History (Updated 04/23/24 @ 14:46 by Audra Corcoran APRN) Bipolar disorder, currently in remission Stroke with migraine Social History: lives with and teenage son; works FT Substance History: episodic THC use Trauma History: mother had bipolar disorder and childhood was chaotic Coding Level of Care Code Tele Est Pt Level 4 (81189) Diagnoses SAVANNAH (generalized anxiety disorder) F41.1 Attention deficit hyperactivity disorder (ADHD), combined type F90.2 Attention deficit-hyperactivity disorder type: combined inattentive- hyperactive Bipolar affective disorder, currently depressed, moderate F31.32 Current episode severity: moderate
--- OUTSIDE RECORDS SUMMARY | 2024-07-22 14:53 | XMS_ITS | Patient Health Record ---
Author Organization [facility] Address [address] [place] [address] Care Team Providers Care Extractions Technologist Name Role Phone Ivana, Julia Primary Care [...] Problem Status W/U Status Risk Notes Problem [id number] Equinus deformity of right foot (M21.6X1) Active confirmed Problem [id number] Equinus deformity of left foot (M21.6X2) Active [...] Insured Coverage Start Date Coverage End Date [facility] [address] [address] [place] [phone] [id number] Brooklyn Falk Self - patient is the [...]
--- OUTSIDE RECORDS SUMMARY | 2024-07-22 14:53 | XMS_ITS | Clinical Summary ---
Author Organization [employer] [facility] [employer] Address [address] [place] [address] Care Team Providers Care Brick Off Bearer Name Role Phone Ivana, Julia ELDRIDGE Primary Care Provider [phone] Allergies No known active allergies Medications eszopiclone [...] Adults 18 yrs or above (or HM Modifier)([facility] ) 08/17/1997 Hepatitis C Virus Infection in Adolescents and Adults: Screening (or Modifier) ([facility] ) 08/17/1997 SDOH Screening Reminder: Annually for all adults ([facility] ) 08/17/1997 Lipid Screening: Once for Women aged 20 to 45 yrs ([facility]) 1999 Cervical Cancer Screenin-65 yrs of age (or Modifier) 08/17/2000 Cervical Cancer Screening: Pap every 3 yrs pts age 21-65 08/17/2000 Cervical Cancer: Pap Screening with Modifier timing ([facility] ) 08/17/2000 Cervical Cancer: hrHPV alone or with cotesting Pap for Pts 30-65yrs screening every 5yrs ([facility] ) 08/17/2000 COVID-19 Vaccine Screening: Initial Series and Booster Status ([facility]) (2023- season) 2023 08/05/2020, 07/21/2020, 06/29/2020 Flu Vaccination: Yearly for ages 18mos through 64 years (or Modifier)([facility]) 10/15/2024 Zoster/Shingles Vaccine Series Screening: Adults aged 18+ yrs (or HM Modifiers)([facility]) (1 of 2) 08/17/2029 DTaP/Tdap/Td Vaccines ([facility]) (3 - Td or Tdap) 08/22/2030 08/22/2020, 12/03/2010 Pneumococcal Vaccination Screening: Pts 0-19 & 19-49 yrs of age ([facility]) Aged Out 02/11/2023, 02/04/2019 No longer eligible based on patient's age to complete this topic Medical Devices Not on file Insurance [employer] Care Teams Brick Off Bearer Relationship Specialty Start Date End Date Julia Heath NP [address] [place] [address] PCP - Supervisor Motor Vehicle [employer] 08/03/17
--- OUTSIDE RECORDS SUMMARY | 2024-07-22 14:53 | XMS_ITS | Clinical Summary ---
Author Organization [facility] Address [address] [place] [address] Care Team Providers Care Stitching Department Supervisor Name Role Phone Julia Heath NP Primary Care Provider Social History Tobacco Use Types Packs/Day Years Used Date Smoking Tobacco: Never Assessed Comments Unknown Sex and Gender Information Value Date Recorded Sex Assigned at Not on file Legal Sex Female 12:04 PM EDT Gender Identity Not on file Sexual Orientation Not on file Plan of Treatment Health Maintenance Due Date Last Done Comments Hepatitis C Virus Screening 1979 HIV Screening 08/17/1992 DTaP/Tdap/Td Vaccines (1 - Tdap) 08/17/1998 Hepatitis B Vaccines (1 of 3 - 19+ 3-dose series) 08/17/1998 COVID-19 Vaccine (2023-2 5 season) 2023 HPV Vaccines Aged Out No longer eligi ble based on patient's age to complete this topic Pneumococcal Vaccine: Pediat sherlyn (0-5 Years) and At-Risk Patients (6 to 49 Years) Aged Out No longer eligible b ased on patient's age to complete this topic Care Teams Stitching Department Supervisor Relationship Specialty Start Date End Date Julia Heath NP [address] [place] [address] PCP - General
== END 2024-07-22 13:59 | disposition home or self-care (01) ==
LOC: HO.HOP 13:58
PROVIDERS: PCP Nurse Practitioner Family; Visit Provider Clinical Nurse Specialist Psychiatric/Mental Health
DX: F41.1 Generalized anxiety disorder (principal); F90.2 Attention-deficit hyperactivity disorder, combined type; F31.32 Bipolar disorder, current episode depressed, moderate
CPT/HCPCS: 99214

== ENCOUNTER 2024-09-23 16:26 | Outpatient (AMB) | payer OTHER, SELFPAY ==
--- NOTE | 2024-09-23 15:16 | A.OFFPSYCH_ITS ---
Intake Intake Visit Reasons: depression Case Therapist Required: No Allergies No Known Allergies Allergy (Verified 06/04/23 09:26) Medication List - Last Reconciled 09/23/24 by Audra Corcoran APRN dextroamphetamine-amphetamine 15 mg ER (Adderall XR) 15 mg PO QNOON dextroamphetamine-amphetamine 20 mg ER (Adderall XR) 20 mg PO QAM ferrous gluconate 324 mg PO DAILY gabapentin 300 mg PO DAILY lamotrigine (Lamictal) 100 mg PO BID lithium carbonate ER 600 mg (2 x 300 mg) PO BEDTIME lurasidone (Latuda) 80 mg PO DAILY trazodone 50 mg PO BEDTIME PRN zolpidem (Ambien) 10 mg PO BEDTIME PRN HPI- Psychiatric Chief Complaint: depression HPI Narrative: pt struggling with depression; she has been dx with stage 3/4 endometriosis and is in severe pain at times; she has a low to moderate level of pain every day; she feels this is contributing to depression; pt has used THC off and on which also contribute s to depression; recently quit THC and restarted zoloft from past rx. She has been on it for 3 weeks; no change in depression; feels more labile; recently had a verbal conflict with co-worker. this was very uncharacteristic of her and she felt worried; she denies SI or HI; no shanelle noted; no pressured speech; functioning well at home and work. 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 Pt describes cyclical depression - December- she gets very depressed, realized by age 29 that she had bipolar do; she reports 2019 hypo-shanelle, shopping, spending, sexual indiscretions Recently at [facility] - 12 day [facility] Apr 2019 after family tried to get her sectioned 35 for drug abuse because she was manic and using marijuana Failed Medication Trials: collin - anxiety/weight/depression abilijamir-anxiety lamictal zoloft rx helped a little with depression prozac sleepy remeron ineffective cymbalta irrational manic antidepressants worsened lived in [place] took antidepressants during winter - in effective Subjective Subjective Subjective Medication Compliance: Yes Side effects from medications: No Review of Systems Medical Review of Systems: unchanged Mental Status Exam Mental Status Exam Patient Appearance: Well Grooomed and Appropriate Patient Orientation: Person, Place, Time and Situation Level of Consciousness: Awake Patient Behavior: Appropriate and Cooperative Mood Description: Depressed, Flat and Sad Affect Description: Depressed, Flat and Sad Patient Cognition Impaired: No Ability to Follow Directions: Good Speech Pattern: Clear, Appropriate and Coherent Memory Description: Intact Hallucinations: None Delusions: Not Present Thought Process: Intact and Goal Oriented Thought Content: positive for Intact and positive for Goal Oriented Judgement: Good Telehealth Telehealth Telehealth Platform: Other (please specify) ([employer]) Location of provider rendering services: practice address Location of patient: other (in her car at work in the [facility] ) Patient Identification confirmed using: Name, : Yes Telehealth method: video Patient verbally consented to treatment: Yes Patient verbally consented to billing insurance company: Yes Patient informed of any privacy concerns related to visit: Yes Minutes spent on Phone/Video with Pt.: 25 Assessment and Plan Assessment & Plan (1) SAVANNAH (generalized anxiety disorder): Status: Acute Code(s): F41.1 - Generalized anxiety disorder (2) ADHD: Status: Acute Qualifiers: Attention deficit-hyperactivity disorder type: combined inattentive- hyperactive Qualified Code(s): F90.2 - Attention-deficit hyperactivity dis order, combined type Code(s): F90.9 - Attention-deficit hyperactivity disorder, unspecified type (3) Bipolar disorder with current episode depressed: Status: Acute Qualifiers: Current episode severity: moderate Qualified Code(s): F31.32 - Bipolar disorder, current episode depressed, moderate Code(s): F31.30 - Bipolar disorder, current episode depressed, mild or moderate severity, unspecified Plan stop lunesta 3mg at bedtime start ambien CR 12.5mg at bedtime increase lithium to 300mg in am and 600mg at bedtime continue other meds as per below labs in one week follow up in 1 month Medications: New zolpidem ER 12.5 mg PO BEDTIME 30 tabs 3RF Changed From lithium carbonate ER 600 mg (2 x 300 mg) PO BEDTIME 60 tabs 1RF To lithium carbonate ER 600 mg orally Take 1 tablet in morning and 2 tablets at bedtime; 90 tabs 1RF Discontinued zolpidem (Ambien) Discontinued Reason: Doctor's Order 10 mg PO BEDTIME PRN 30 tabs 1RF sleep Counseling and coordination of Care Pt. Self Management counseling: Maintenance-social rhythm, Mod caffeine/ETOH intake, Nutrition education and improvement, Sleep hygiene and General coping skills Medication management counseling: Effectiveness, Side effects, Dosing range, Duration, Drug interaction and Adherence Diagnosis and Prognosis Counseling: Accuracy of diagnosis, Prognosis over time, Impact of diagnosis on life functions, Impact of family relationship, Problematic behaviors secondary to diagnosis and Adequacy of current interventions Details: I spent 38 minutes reviewing the record, seeing the patient and documenting in the medical record. Counseling provided to the patient/caregiver as outlined below. Addressed patient/caregiver concerns regarding current medication regime including effective adherence. Addressed patient/caregiver concerns regarding diagnosis and prognosis including accuracy of diagnosis, prognosis over time, impact of diagnosis. Addressed patient/caregiver concerns regarding impact of recent stressors. [facility] Medical History (Updated 04/23/24 @ 14:46 by Audra Corcoran APRN) Bipolar disorder, currently in remission Stroke with migraine Social History: lives with and teenage son; works FT Substance History: episodic THC use Trauma History: mother had bipolar disorder and childhood was chaotic Coding Level of Care Code Tele Est Pt Level 4 (67385) Diagnoses SAVANNAH (generalized anxiety disorder) F41.1 Attention deficit hyperactivity disorder (ADHD), combined type F90.2 Attention deficit-hyperactivity disorder type: combined inattentive- hyperactive Bipolar affective disorder, currently depressed, moderate F31.32 Current episode severity: moderate
--- OUTSIDE RECORDS SUMMARY | 2024-09-23 16:28 | XMS_ITS | Patient Health Record ---
Author Organization [facility] Address [address] [place] [address] Care Team Providers Care Dining Room Host Name Role Phone Ivana, Julia Primary Care [...] Problem Status W/U Status Risk Notes Problem [id number] Equinus deformity of right foot (M21.6X1) Active confirmed Problem [id number] Equinus deformity of left foot (M21.6X2) Active [...] Insured Coverage Start Date Coverage End Date [facility] [address] [address] [place] [address] [phone] [id number] Brooklyn Falk Self - patient is the [...]
--- OUTSIDE RECORDS SUMMARY | 2024-09-23 16:28 | XMS_ITS | Clinical Summary ---
Author Organization [facility] Address [address] [place] [address] Care Team Providers Care Maintenance Manager Name Role Phone Julia Heath NP Primary Care Provider [phone] Social History Tobacco Use Types Packs/Day Years [...] age to complete this topic Care Teams Maintenance Manager Relationship Specialty Start Date End Date Julia Heath NP [address] [place] [address] PCP - General
--- OUTSIDE RECORDS SUMMARY | 2024-09-23 16:29 | XMS_ITS | Patient Health Record ---
[facility] Organization [facility] [place] Address [address] [place] [address] Care Team Providers Care Transfer Operator Name Role Phone Mari Orona Primary Care Provider Unavaila ble Hannah Burgess Unavailable [phone] Reason For Referral No Information Problems Problem Type SNOMED Code ICD Code Onset Dates Problem Status W/U Status Risk Notes Problem Arthralgia (13248172) Arthralgia (719.40) Active confirmed Problem Disorder of joint of ankle and/or foot (944758648) Arthritis - Degenerative (719.97) Active confirmed Problem Bursitis (28635673) Bursitis (727.3) Active confirmed Problem Congenital pes cavus (438613945) Cavus Foot (754.71) Active confirmed Problem Myositis (20269549) Myositis (729.1) Active confirmed Problem Pain in limb (39722207) Pain in Limb (729.5) Active confirmed Problem Plantar fasciitis (459217024) Plantar Fasciitis (728.71) Active confirmed Plan Of Treatment Pending Test Test Name Order Date X ray : Foot, left 3V 12/30/2012 X ray : Foot, right 3V 12/30/2012 Insurance Providers Payer Name Payer Address Payer Phone Subscriber Number Group Number Insured Name Patient Relationship to Insured Coverage Start Date Coverage End Date [facility] [id number] [place] [address] [id number] Wan Falk Spouse - patient is the spouse of the insured Medical (General) History Medical History History ICD Code asthma back, hip, knee pain headaches/migraines stroke chicken pox
--- OUTSIDE RECORDS SUMMARY | 2024-09-23 16:29 | XMS_ITS | Clinical Summary ---
Author Organization [employer] [facility] Address [address] [place] [address] Care Team Providers Care Lab Coordinator Name Role Phone Ivana, Julia ELDRIDGE Primary Care Provider [phone] Allergies No known active allergies Medications eszopiclone [...] 73 09/04/2023 4:06 PM EDT Temperature 36.9 C (98.4 F) 09/04/2023 4:06 PM EDT Respiratory Rate 14 09/04/2023 4:06 PM EDT Oxygen Saturation 98% 09/04/2023 4:06 PM EDT Inhaled Oxygen Concentration - - Weight 81.6 kg (180 lb) 07/10/2023 11:01 AM EDT Height 168.9 cm (5' 6.5 ) 07/10/2023 11:01 AM ED T Body Mass Index 28.62 07/10/2023 11:01 AM EDT Plan of Treatment Health Maintenance Due Date Last Done Comments Colorectal Cancer: COLONOSCO PY Screening every 10 yrs (or Modifier) 1979 Depression: Screening Annual ly using PHQ-2/9 in Adults 18 yrs or above (or HM Modifier)([facility]) 08/17/1997 Hepatitis C Virus Infection in Adolescents and Adults: Screening (or Modifier) ([facility]) 08/17/1997 SDOH Screening Reminder: Annually for all adults ([facility]) 08/17/1997 Cervical Cancer Screenin-65 yrs of age (or Modifier) 08/17/2000 Cervical Cancer Screening: P ap every 3 yrs pts age 21-65 08/17/2000 Cervical Cancer: Pap Screeni ng with Modifier timing ([facility]) 08/17/2000 Cervical Cancer: hrHPV alone or with cotesting Pap for Pts 30-65yrs screening every 5yrs ([facility]) 08/17/2000 COVID-19 Vaccine Screening: Initial Series and Booster Status ([facility]) (2023-) 11/16/2023 08/05/2020, 07/21/2020, 06/29/2020 Tobacco Smoking Cessation: i n Adults excluding Women: Behavioral and Pharmacotherapy Interventions ([facility]) 03/21/2024 03/21/2023 Colorectal Cancer Screening 45 -75 Yrs (or HM Modifier) 08/17/2024 Colorectal Cancer: FLEXIBLE SIGMOIDOSCOPY Screening every 5 yrs 08/17/2024 Colorectal Cancer: Fecal Immunochemical Test (FIT) Annually [facility] 08/17/2024 Colorectal Cancer: High-sensitivity gFOBT Screening Annually [facility] 08/17/2024 Colorectal Cancer: Stool Cologuard Screening every 3 yrs 08/17/2024 Colorectal Cancer:CT Colonography Screening every 5 yrs 08/17/2024 Flu Vaccination: Yearly for ages 18mos through 64 years (or Modifier)([facility]) 10/15/2024 Zoster/Shingles Vaccine Seri es Screening: Adults aged 18+ yrs (or HM Modifiers)([facility]) (1 of 2) 08/17/2029 DTaP/Tdap/Td Vaccines ([facility]) (3 - Td or Tdap) 08/22/2030 08/22/2020, 12/03/2010 Pneumococcal Vaccination Screening: Pts 0-19 & 19-49 yrs of age ([facility]) Aged Out 02/11/2023, 02/04/2019 No longer eligible based on patient's age to complete this topic Medical Devices Not on file Insurance [employer]ET[employer] Care Teams Lab Coordinator Relationship Specialty Start Date End Date Julia Heath NP [address] [place] [address] PCP - Service Bar Cashier 08/03/17
== END 2024-09-23 16:27 | disposition home or self-care (01) ==
LOC: HO.HOP 16:26
PROVIDERS: PCP Nurse Practitioner Family; Visit Provider Clinical Nurse Specialist Psychiatric/Mental Health
DX: F31.32 Bipolar disorder, current episode depressed, moderate (principal); F41.1 Generalized anxiety disorder; F90.2 Attention-deficit hyperactivity disorder, combined type
CPT/HCPCS: 99214

== ENCOUNTER 2024-11-08 17:07 | Outpatient (AMB) | payer OTHER, SELFPAY ==
--- NOTE | 2024-11-08 17:15 | A.OFFPSYCH_ITS ---
Intake Intake Visit Reasons: depression Rn Or Lvn Required: No Allergies No Known Allergies Allergy (Verified 06/04/23 09:26) Medication List - Last Reconciled 11/08/24 by Audra Corcoran APRN dextroamphetamine-amphetamine 15 mg ER (Adderall XR) 15 mg PO BID ferrous gluconate 324 mg PO DAILY gabapentin 300 mg PO DAILY lamotrigine (Lamictal) 100 mg PO BID lithium carbonate ER 600 mg orally Take 1 tablet in morning and 2 tablets at bedtime; lurasidone (Latuda) 80 mg PO DAILY trazodone 50 mg PO BEDTIME PRN zolpidem ER 12.5 mg PO BEDTIME HPI- Psychiatric Chief Complaint: depression HPI Narrative: pt seen for follow up re: Bipolar disorder and ADHD. Pt's father committed suicide approximately one month ago. Pt struggling with the unexpected event and unfolding consequences. She is worried about her son processing the grief. Pt reports not sleeping well for 2 weeks but improved sleep now. he has good mutual support from one sister and her other sister is showing up to help as well but not as historically reliable. Pt mood overall stable. Bursting into tears at times. sleeping better more recently. consistent with meds. got labs done 10/30. pt wanting to work with a therapist to process suicide and the changes to her life i,e needing to care for mother, help son through grief, and coming to terms with fathers herself. 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 Pt describes cyclical depression - December- she gets very depressed, realized by age 29 that she had bipolar do; she reports 2019 hypo-shanelle, shopping, spending, sexual indiscretions Recently at [facility] - 12 day [facility] Apr 2019 after family tried to get her sectioned 35 for drug abuse b ecause she was manic and using marijuana Failed Medication Trials: geodon - anxiety/weight/depression abilify-anxiety lamictal zoloft rx helped a little with depression prozac sleepy remeron ineffective cymbalta irrational manic antidepressants worsened lived in [place] took antidepressants during winter - in effective Subjective Subjective Subjective Medication Compliance: Yes Side effects from medications: No Review of Systems Medical Review of Systems: unchanged Mental Status Exam Mental Status Exam Patient Appearance: Well Grooomed and Appropriate Patient Orientation: Person, Place, Time and Situation Level of Consciousness: Awake Patient Behavior: Appropriate, Cooperative and Crying Mood Description: Depressed, Flat and Sad Affect Description: Depressed, Flat and Sad Patient Cognition Impaired: No Ability to Follow Directions: Good Speech Pattern: Clear, Appropriate and Coherent Memory Description: Intact Hallucinations: None Delusions: Not Present Thought Process: Intact and Goal Oriented Thought Content: positive for Intact and positive for Goal Oriented Judgement: Good Judgement and Insight: good insight and judgment; denies SI or HI Telehealth Telehealth Telehealth Platform: Other (please specify) ([employer]) Location of provider rendering services: practice address Location of patient: other (in her car at work in the Replaced by [facility] ) Patient Identification confirmed using: Name, : Yes Telehealth method: video (and voice due to difficulty with fluid connection) Patient verbally consented to treatment: Yes Patient verbally consented to billing insurance company: Yes Patient informed of any privacy concerns related to visit: Yes Minutes spent on Phone/Video with Pt.: 30 Assessment and Plan Assessment & Plan (1) SAVANNAH (generalized anxiety disorder): Status: Acute Code(s): F41.1 - Generalized anxiety disorder (2) ADHD: Status: Acute Qualifiers: Attention deficit-hyperactivity disorder type: combined inattentive- hyperactive Qualified Code(s): F90.2 - Attention-deficit hyperactivity disorder, combined type Code(s): F90.9 - Attention-deficit hyperactivity disorder, unspecified type (3) Bipolar disorder with current episode depressed: Status: Acute Qualifiers: Current episode severity: moderate Qualified Code(s): F31.32 - Bipolar disorder, current episode depressed, moderate Code(s): F31.30 - Bipolar disorder, current episode depressed, mild or moderate severity, unspecified (4) Complicated grief: Status: Acute Code(s): F43.21 - Adjustment disorder with depressed mood Plan continue ambien CR 12.5mg at bedtime continue lithium to 300mg in am and 600mg at bedtime continue other meds as per below follow up in 6-8 weeks Medications: Refilled trazodone 50 mg PO BEDTIME PRN 30 tabs 3RF sleep dextroamphetamine-amphetamine 15 mg ER (Adderall XR) Partial Fill upon patient request. 15 mg PO BID 60 caps 0RF F90.2 - Attention-deficit hyperactivity disorder, combined type lurasidone (Latuda) must administer with food (at least 350 calories) 80 mg PO DAILY 30 tabs 3RF lamotrigine (Lamictal) 100 mg PO BID 60 tabs 1RF zolpidem ER 12.5 mg PO BEDTIME 30 tabs 3RF Counseling and coordination of Care Pt. Self Management counseling: Maintenance-social rhythm, Mod caffeine/ETOH intake, Nutrition education and improvement, Sleep hygiene and General coping skills Medication management counseling: Effectiveness, Side effects, Dosing range, Duration, Drug interaction and Adherence Diagnosis and Prognosis Counseling: Accuracy of diagnosis, Prognosis over time, Impact of diagnosis on life functions, Impact of family relationship, Problematic behaviors secondary to diagnosis and Adequacy of current interventions Details-Diagnosis/Prognosis counseling: Group OPTION: Please follow up with the listed contact to ensure their group is still active and confirm both meeting times and location. Meeting Place: [place] [address] Meeting Time(s): The group meets continuously throughout the year. Meetings are held monthly on the friday of the month from 7:00 pm to 9:00 pm. Contact: Radha Sanchez, , [email or web address] Individual therapy: ?Keny[place] mailto: Or [phone] She does take [employer] but not all plans- can call her or email to see if covered The other option is to call [employer] and ask for a list of providers Mary Hendricks Psychologist Ed KRAUSE Details: I spent 45 minutes reviewing the record, seeing the patient and documenting in the medical record. Counseling provided to the patient/caregiver as outlined below. Addressed patient/caregiver concerns regarding current medication regime including effective adherence. Addressed patient/caregiver concerns regarding diagnosis and prognosis including accuracy of diagnosis, prognosis over time, impact of diagnosis. Addressed patient/caregiver concerns regarding impact of recent stressors. [facility] Medical History (Updated 11/08/24 @ 17:39 by Audra Corcoran APRN) Bipolar disorder, currently in remission Stroke with migraine Social History: lives with and teenage son; works FT Substance History: episodic THC use Trauma History: mother had bipolar disorder and childhood was chaotic Coding Level of Care Code Est Pt Level 5 (07596) Diagnoses SAVANNAH (generalized anxiety disorder) F41.1 Attention deficit hyperactivity disorder (ADHD), combined type F90.2 Attention deficit-hyperactivity disorder type: combined inattentive- hyperactive Bipolar affective disorder, currently depressed, moderate F31.32 Current episode severity: moderate Complicated grief F43.21
== END 2024-11-08 17:08 | disposition home or self-care (01) ==
LOC: HO.HOP 17:07
PROVIDERS: PCP Nurse Practitioner Family; Visit Provider Clinical Nurse Specialist Psychiatric/Mental Health
DX: F31.32 Bipolar disorder, current episode depressed, moderate (principal); F41.1 Generalized anxiety disorder; F90.2 Attention-deficit hyperactivity disorder, combined type; F43.21 Adjustment disorder with depressed mood
CPT/HCPCS: 99214

== ENCOUNTER 2024-12-28 13:41 | Outpatient (AMB) | payer OTHER, SELFPAY ==
--- NOTE | 2024-12-28 13:09 | MHC.OFFVISPS ---
Intake Intake Visit Reasons: depression [place] Required: No Allergies No Known Allergies Allergy (Verified 06/04/23 09:26) Medication List - Last Reconciled 12/28/24 by Audra Corcoran APRN dextroamphetamine-amphetamine 15 mg ER (Adderall XR) 15 mg PO BID ferrous gluconate 324 mg PO DAILY gabapentin 300 mg PO DAILY lamotrigine (Lamictal) 100 mg PO BID lithium carbonate ER 600 mg orally Take 1 tablet in morning and 2 tablets at bedtime; lurasidone (Latuda) 80 mg PO DAILY trazodone 50 mg PO BEDTIME PRN zolpidem ER 12.5 mg PO BEDTIME HPI- Psychiatric Chief Complaint: depression HPI Narrative: pt seen for follow up re: Bipolar disorder and ADHD. Pt continues to come to terms and cope with her father suicide. Pt struggling with the unexpected event and unfolding consequences. Pt mood overall stable. Bursting into tears at times. sleeping better more recently. consistent with meds. pt having difficulty finding a therapist that takes her insurance. She has increased responsibilities to care for mother. Pt denies SI or HI She is consistent with meds. 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 Pt describes cyclical depression - December - July- she gets very depressed, realized by age 29 that she had bipolar do; she reports 2019 hypo-shanelle, shopping, spending, sexual indiscretions Recently at [facility] - 12 day [facility] Apr 2019 after family tried to get her sectioned 34 for drug abuse because she was manic and using marijuana Failed Medication Trials: geodon - anxiety/weight/depression abilify-anxiety lamictal zoloft rx helped a little with depression prozac sleepy remeron ineffective cymbalta irrational manic antidepressants worsened lived in [place] took antidepressants during winter - in effective Subjective Subjective Subjective Medication Compliance: Yes Side effects from medications: No Review of Systems Medical Review of Systems: unchanged Mental Status Exam Mental Status Exam Patient Appearance: Well Grooomed and Appropriate Patient Orientation: Person, Place, Time and Situation Level of Consciousness: Awake Patient Behavior: Appropriate, Cooperative and Crying Mood Description: Depressed, Flat and Sad Affect Description: Depressed, Flat and Sad Patient Cognition Impaired: No Ability to Follow Directions: Good Speech Pattern: Clear, Appropriate and Coherent Memory Description: Intact Hallucinations: None Delusions: Not Present Thought Process: Intact and Goal Oriented Thought Content: positive for Intact and positive for Goal Oriented Judgement: Good Judgement and Insight: good insight and judgment; denies SI or HI Telehealth Telehealth Telehealth Platform: Other (please specify) ([facility]) Location of provider rendering services: practice address Location of patient: other (in her car at work in the [facility] [employer] ) Patient Identification confirmed using: Name, : Yes Telehealth method: video (and voice due to difficulty with fluid connection) Patient verbally consented to treatment: Yes Patient verbally consented to billing insurance company: Yes Patient informed of any privacy concerns related to visit: Yes Minutes spent on Phone/Video with Pt.: 30 Assessment and Plan Assessment & Plan (1) ASVANNAH (generalized anxiety disorder): Status: Acute Code(s): F41.1 - Generalized anxiety disorder (2) ADHD: Status: Acute Qualifiers: Attention deficit-hyperactivity disorder type: combined inattentive-hyperactive Qualified Code(s): F90.2 - Attention-deficit hyperactivity disorder, combined type Code(s): F90.9 - Attention-deficit hyperactivity disorder, unspecified type (3) Bipolar disorder with current episode depressed: Status: Acute Qualifiers: Current episode severity: moderate Qualified Code(s): F31.32 - Bipolar disorder, current episode depressed, moderate Code(s): F31.30 - Bipolar disorder, current episode depressed, mild or moderate severity, unspecified (4) Complicated grief: Status: Acute Code(s): F43.21 - Adjustment disorder with depressed mood Plan continue ambien CR 12.5mg at bedtime continue lithium to 300mg in am and 600mg at bedtime continue other meds as per below follow up 8-10 weeks Counseling and coordination of Care Pt. Self Management counseling: Maintenance-social rhythm, Mod caffeine/ETOH intake, Nutrition education and improvement, Sleep hygiene and General coping skills Medication management counseling: Effectiveness, Side effects, Dosing range, Duration, Drug interaction and Adherence Diagnosis and Prognosis Counseling: Accuracy of diagnosis, Prognosis over time, Impact of diagnosis on life functions, Impact of family relationship, Problematic behaviors secondary to diagnosis and Adequacy of current interventions Details: I spent 35 minutes reviewing the record, seeing the patient and documenting in the medical record. Counseling provided to the patient/caregiver as outlined below. Addressed patient/caregiver concerns regarding current medication regime including effective adherence. Addressed patient/caregiver concerns regarding diagnosis and prognosis including accuracy of diagnosis, prognosis over time, impact of diagnosis. Addressed patient/caregiver concerns regarding impact of recent stressors. [facility] Medical History (Updated 11/08/24 @ 17:39 by Audra Corcoran APRN) Bipolar disorder, currently in remission Stroke with migraine Social History: lives with and teenage son; works FT Substance History: episodic THC use Trauma History: mother had bipolar disorder and childhood was chaotic Coding Level of Care Code Tele Est Pt Level 4 (38122) Diagnoses SAVANNAH (generalized anxiety disorder) F41.1 Attention deficit hyperactivity disorder (ADHD), combined type F90.2 Attention deficit-hyperactivity disorder type: combined inattentive-hyperactive Bipolar affective disorder, currently depressed, moderate F31.32 Current episode severity: moderate Complicated grief F43.21
--- OUTSIDE RECORDS SUMMARY | 2024-12-28 16:36 | XMS_ITS | Patient Health Record ---
[facility] [place] Address [address] [place] [address] Care Team Providers Care Senior Scientist Name Role Phone Mari Orona Primary Care Provider Unavaila ble Hannah Burgess Unavailable [phone] Reason For Referral No Information Problems Problem Type SNOMED Code ICD Code Onset Dates Problem Status W/U Status Risk Notes Problem Arthralgia (72508482) Arthralgia (719.40) Active confirmed Problem Disorder of joint of ankle and/or foot (501027363) Arthritis - Degenerative (719.97) Active confirmed Problem Bursitis (91762919) Bursitis (727.3) Active confirmed Problem Congenital pes cavus (880411565) Cavus Foot (754.71) Active confirmed Problem Myositis (08108167) Myositis (729.1) Active confirmed Problem Pain in limb (89953469) Pain in Limb (729.5) Active confirmed Problem Plantar fasciitis (740099361) Plantar Fasciitis (728.71) Active confirmed Plan Of Treatment Pending Test Test Name Order Date X ray : Foot, left 3V 12/30/2012 X ray : Foot, right 3V 12/30/2012 Insurance Providers Payer Name Payer Address Payer Phone Subscriber Number Group Number Insured Name Patient Relationship to Insured Coverage Start Date Coverage End Date [facility] [id number] [address] [place] [address] [id number] Wan Falk Spouse - patient is the spouse of the insured Medical (General) History Medical History History ICD Code asthma back, hip, knee pain headaches/migraines stroke chicken pox
--- OUTSIDE RECORDS SUMMARY | 2024-12-28 16:36 | XMS_ITS | Clinical Summary ---
Author Organization [employer] [facility] [employer] Address [address] [place] [address] Care Team Providers Care Information Assurance Name Role Phone Ivana, Julia ELDRIDGE Primary Care Provider [phone] Allergies No known active allergies Medications eszopiclone [...] Adults 18 yrs or above (or HM Modifier)([facility]) 08/17/1997 Hepatitis C Virus Infection in Adolescents and Adults: Screening (or Modifier) ([facility]) 08/17/1997 SDOH Screening Reminder: Annually for all adults ([facility]) 08/17/1997 Cervical Cancer Screenin-65 yrs of age (or Modifier) 08/17/2000 Cervical Cancer Screening: P ap every 3 yrs pts age 21-65 08/17/2000 Cervical Cancer: Pap Screeni ng with Modifier timing ([facility]) 08/17/2000 Cervical Cancer: hrHPV alone or with cotesting Pap for Pts 30-65yrs screening every 5yrs ([facility]) 08/17/2000 Tobacco Smoking Cessation: i n Adults excluding Women: Behavioral and Pharmacotherapy Interventions ([facility]) 03/21/2024 03/21/2023 Colorectal Cancer Screening 45 -75 Yrs (or HM Modifier) 08/17/2024 Colorectal Cancer: FLEXIBLE SIGMOIDOSCOPY Screening every 5 yrs 08/17/2024 Colorectal Cancer: Fecal Immunochemical Test (FIT) Annually [facility] 08/17/2024 Colorectal Cancer: High-sensitivity gFOBT Screening Annually [facility] 08/17/2024 Colorectal Cancer: Stool Cologuard Screening every 3 yrs 08/17/2024 Colorectal Cancer:CT Colonography Screening every 5 yrs 08/17/2024 Flu Vaccination: Yearly for ages 18mos through 64 years (or Modifier)([facility]) 10/15/2024 COVID-19 Vaccine Screening: Initial Series and Booster Status ([facility]) ( - 2024- season) 2024 08/05/2020, 07/21/2020, 06/29/2020 Zoster/Shingles Vaccine Seri es Screening: Adults aged 18+ yrs (or HM Modifiers)([facility]) (1 of 2) 08/17/2029 DTaP/Tdap/Td Vaccines ([facility]) (3 - Td or Tdap) 08/22/2030 08/22/2020, 12/03/2010 Pneumococcal Vaccination Screening: Pts 0-19 & 19-49 yrs of age ([facility]) Aged Out 02/11/2023, 02/04/2019 No longer eligible based on patient's age to complete this topic Medical Devices Not on file Insurance [employer] Care Teams Information Assurance Relationship Specialty Start Date End Date Julia Heath NP [address] [place] [address] PCP - Mass Spectrometry Specialist 08/03/17
--- OUTSIDE RECORDS SUMMARY | 2024-12-28 16:36 | XMS_ITS | Clinical Summary ---
Author Organization [facility] Address [address] [place] [address] Care Team Providers Care Vibration Analyst Name Role Phone Julia Heath NP Primary Care Provider [phone] Social History Tobacco Use Types Packs/Day Years [...] COVID-19 Vaccine ( - 2023-2 5 season) 2024 HPV Vaccines (No Doses Required) Completed Pneumococcal Vaccine: Pediat sherlyn (0-5 Years) and At-Risk Patients (6 to 49 Years) Aged Out No longer eligible b ased on patient's age to complete this topic Care Teams Vibration Analyst Relationship Specialty Start Date End Date Julia Heath NP [address] [place] [address] PCP - General
--- OUTSIDE RECORDS SUMMARY | 2024-12-28 16:36 | XMS_ITS | Patient Health Record ---
Author Organization [facility] Address [address] [place] [address] Care Team Providers Care Land Acquisition Manager Name Role Phone Ivana, Julia Primary Care [...] to painful area of foot Twice a day; Duration: 30 day(s) Activ e Latuda 80 MG 1 tablet with food O rally Once a day Active Gabapentin 300 MG 1 capsule Orally Onc e a day Active Flovent Diskus 100 MCG/BLIST 1 puff Inhalation Twice a day Active Problems Problem Type SNOMED Code ICD Code Onset Dates Problem Status W/U Status Risk Notes Problem Plantarflexion deformity of right foot (finding) (8974569083008461) Equinus deformity of right foot (M21.6X1) Active confirmed Problem Plantarflexion deformity of left foot (finding) (1837382366091053) Equinus deformity of left foot (M21.6X2) Active [...] Insured Coverage Start Date Coverage End Date [facility] [address] [address] [place] [address] [phone] [id number] Brooklyn Falk Self - patient is the [...] Surgery Date(Month/Year) precancerous lesions removed from cervix 1996
== END 2024-12-28 13:42 | disposition home or self-care (01) ==
LOC: HO.HOP 13:41
PROVIDERS: PCP Nurse Practitioner Family; Visit Provider Clinical Nurse Specialist Psychiatric/Mental Health
DX: F41.1 Generalized anxiety disorder (principal); F90.2 Attention-deficit hyperactivity disorder, combined type; F31.32 Bipolar disorder, current episode depressed, moderate; F43.21 Adjustment disorder with depressed mood
CPT/HCPCS: 99214

== ENCOUNTER 2025-02-22 13:28 | Outpatient (AMB) | payer OTHER, SELFPAY ==
--- NOTE | 2025-02-22 13:13 | MHC.OFFVISPS ---
Intake Intake Visit Reasons: depression Raw Shellfish Preparer Required: No Allergies No Known Allergies Allergy (Verified 06/04/23 09:26) Medication List - Last Reconciled 02/22/25 by Audra Corcoran APRN albuterol sulfate 90 mcg/actuation 2 puffs inhalation Q6H PRN amoxicillin-pot clavulanate 875-125 mg 1 tab PO BID budesonide 90 mcg/actuation (Pulmicort Flexhaler) inhalation dextroamphetamine-amphetamine 15 mg ER (Adderall XR) 15 mg PO BID ferrous gluconate 324 mg PO DAILY fluconazole 150 mg PO ONCE gabapentin 300 mg PO DAILY lamotrigine (Lamictal) 100 mg PO BID lithium carbonate ER 600 mg orally Take 1 tablet in morning and 2 tablets at bedtime; lurasidone (Latuda) 80 mg PO DAILY methylprednisolone mg PO DIRECTED trazodone 50 mg PO BEDTIME PRN zolpidem ER 12.5 mg PO BEDTIME HPI- Psychiatric Chief Complaint: depression HPI Narrative: pt seen via telehealth for follow up re: bipolar depression, anxiety, and grief. Pt reports stable mood overall; holidays have been difficult witht he loss of her father; she has felt very sad at times; she is trying to stay active and engaged in holiday traditions for her 13 yr old son; she is adherent with meds; sleep fair; appetite fair; she is working from home; she has had 3 URI since our last visit so her immmune system is struggling; had labs done in mar 2024 [place] level 0.6 TSH 1.070. Creat 1.00 and BUN 8 Electrolytes and LFTs normal. Pt reports intermittent tremor 2-3 times a week that last few seconds to minutes. Does not interfere with functioning; pt will work on hydrating and will monitor Past Psychiatric History: Pt diagnosed with bipolar disorder and states she is anxious and that anxiety is a trigger for depression phase; she starts to isolate, stops functioning and has more negative thoughts, she has decrease interest in sex; stays in bed,; when she is manic she says she is overly emphatic, it feels pretty normal to her; she is typically an over-sharer and gets involved in others' business; she can be a little angry and irritable, high energy, she is very social normally, had an open marriage but not really ok with it; she is into yoga and meditation, 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 Pt describes cyclical depression - December - July- she gets very depressed, realized by age 29 that she had bipolar do; she reports 2020 hypo-shanlele, shopping, spending, sexual indiscretions Recently at [facility] - 12 day [facility] Apr 2019 after family tried to get her sectioned 35 for drug abuse because she was manic and using marijuana Failed Medication Trials: geodon - anxiety/weight/depression abilify-anxiety lamictal zoloft rx helped a little with depression prozac sleepy remeron ineffective cymbalta irrational manic antidepressants worsened lived in [place] took antidepressants during winter - in effective Subjective Subjective Medication Compliance: Yes Side effects from medications: No Review of Systems Medical Review of Systems: unchanged Mental Status Exam Mental Status Exam Patient Appearance: Well Grooomed and Appropriate Patient Orientation: Person, Place, Time and Situation Level of Consciousness: Awake Patient Behavior: Appropriate and Cooperative Mood Description: Flat and Sad Patient Cognition Impaired: No Ability to Follow Directions: Good Speech Pattern: Clear, Appropriate and Coherent Memory Description: Intact Hallucinations: None Delusions: Not Present Thought Process: Intact and Goal Oriented Thought Content: positive for Intact and positive for Goal Oriented Judgement: Good Telehealth Telehealth Telehealth Platform: Telephone Location of provider rendering services: practice address Location of patient: address on file Patient Identification confirmed using: Name, : Yes Telehealth method: voice only Patient verbally consented to treatment: Yes Patient verbally consented to billing insurance company: Yes Patient informed of any privacy concerns related to visit: Yes Minutes spent on Phone/Video with Pt.: 15 Assessment and Plan Assessment & Plan (1) SAVANNAH (generalized anxiety disorder): Status: Acute Code(s): F41.1 - Generalized anxiety disorder (2) ADHD: Status: Acute Qualifiers: Attention deficit-hyperactivity disorder type: combined inattentive-hyperactive Qualified Code(s): F90.2 - Attention-deficit hyperactivity disorder, combined type Code(s): F90.9 - Attention-deficit hyperactivity disorder, unspecified type (3) Bipolar disorder with current episode depressed: Status: Acute Qualifiers: Current episode severity: moderate Qualified Code(s): F31.32 - Bipolar disorder, current episode depressed, moderate Code(s): F31.30 - Bipolar disorder, current episode depressed, mild or moderate severity, unspecified (4) Complicated grief: Status: Acute Code(s): F43.21 - Adjustment disorder with depressed mood Plan continue ambien CR 12.5mg at bedtime continue lithium to 300mg in am and 600mg at bedtime continue other meds as per below follow up 8-10 weeks Medications: Refilled dextroamphetamine-amphetamine 15 mg ER (Adderall XR) Partial Fill upon patient request. 15 mg PO BID 60 caps 0RF F90.2 - Attention-deficit hyperactivity disorder, combined type lurasidone (Latuda) must administer with food (at least 350 calories) 80 mg PO DAILY 30 tabs 3RF zolpidem ER 12.5 mg PO BEDTIME 30 tabs 3RF lamotrigine (Lamictal) 100 mg PO BID 60 tabs 1RF lithium carbonate ER 600 mg orally Take 1 tablet in morning and 2 tablets at bedtime; 90 tabs 1RF trazodone 50 mg PO BEDTIME PRN 30 tabs 3RF sleep Counseling and coordination of Care Pt. Self Management counseling: Maintenance-social rhythm, Mod caffeine/ETOH intake, Nutrition education and improvement, Sleep hygiene and General coping skills Medication management counseling: Effectiveness, Side effects, Dosing range, Duration, Drug interaction and Adherence Diagnosis and Prognosis Counseling: Accuracy of diagnosis, Prognosis over time, Impact of diagnosis on life functions, Impact of family relationship, Problematic behaviors secondary to diagnosis and Adequacy of current interventions Details: I spent 20 minutes reviewing the record, seeing the patient and documenting in the medical record. Counseling provided to the patient/caregiver as outlined below. Addressed patient/caregiver concerns regarding current medication regime including effective adherence. Addressed patient/caregiver concerns regarding diagnosis and prognosis including accuracy of diagnosis, prognosis over time, impact of diagnosis. Addressed patient/caregiver concerns regarding impact of recent stressors. [facility] Medical History (Updated 11/08/24 @ 17:39 by Audra Corcoran APRN) Bipolar disorder, currently in remission Stroke with migraine Social History: lives with and teenage son; works FT Substance History: episodic THC use Trauma History: mother had bipolar disorder and childhood was chaotic Coding Level of Care Code Tele Est Pt Level 3 (48461) Diagnoses SAVANNAH (generalized anxiety disorder) F41.1 Attention deficit hyperactivity disorder (ADHD), combined type F90.2 Attention deficit-hyperactivity disorder type: combined inattentive-hyperactive Bipolar affective disorder, currently depressed, moderate F31.32 Current episode severity: moderate Complicated grief F43.21
--- OUTSIDE RECORDS SUMMARY | 2025-02-22 18:55 | XMS_ITS | Patient Health Record ---
Author Organization [facility] [place] Address [address] [place] [address] Care Team Providers Care Bilingual Kindergarten Teacher Name Role Phone Mari Orona Primary Care Provider Unavaila ble Hannah Burgess Unavailable [phone] Reason For Referral No Information Problems Problem Type SNOMED Code ICD Code Onset Dates Problem Status W/U Status Risk Notes Problem Arthralgia (09297480) Arthralgia (719.40) Active confirmed Problem Disorder of joint of ankle and/or foot (763792577) Arthritis - Degenerative (719.97) Active confirmed Problem Bursitis (90469785) Bursitis (727.3) Active confirmed Problem Congenital pes cavus (311032614) Cavus Foot (754.71) Active confirmed Problem Myositis (84718980) Myositis (729.1) Active confirmed Problem Pain in limb (07206829) Pain in Limb (729.5) Active confirmed Problem Plantar fasciitis (485027489) Plantar Fasciitis (728.71) Active confirmed Plan Of Treatment Pending Test Test Name Order Date X ray : Foot, left 3V 12/30/2012 X ray : Foot, right 3V 12/30/2012 Insurance Providers Payer Name Payer Address Payer Phone Subscriber Number Group Number Insured Name Patient Relationship to Insured Coverage Start Date Coverage End Date [facility] [id number] [address] [place] [address] [id number] Wan Falk Spouse - patient is the spouse of the insured Medical (General) History Medical History History ICD Code asthma back, hip, knee pain headaches/migraines stroke chicken pox
--- OUTSIDE RECORDS SUMMARY | 2025-02-22 18:56 | XMS_ITS | Patient Health Record ---
Author Organization [facility] Address [address] [place] [address] Care Team Providers Care Passenger Train Braker Name Role Phone Ivana, Julia Primary Care [...] Problem Plantarflexion deformity of right foot (finding) (4266434396139881) Equinus deformity of right foot (M21.6X1) Active confirmed Problem Plantarflexion deformity of left foot (finding) (1453560545596744) Equinus deformity of left foot (M21.6X2) Active [...] Insured Coverage Start Date Coverage End Date [facility] [address] [address] [place] [address] [id number] Brooklyn Falk Self - patient is the [...]
--- OUTSIDE RECORDS SUMMARY | 2025-02-22 18:56 | XMS_ITS | Clinical Summary ---
Author Organization [facility] [employer] Address [address] [address] Care Team Providers Care Vacuum Extractor Operator Name Role Phone Ivana, Julai ELDRIDGE Primary Care Provider [phone] Allergies No known active allergies Medications eszopiclone [...] Due Date Last Done Comments Depression: Screening Annual ly using PHQ-2/9 in Adults 18 yrs or above (or HM Modifier)([facility]) 08/17/1997 Hepatitis C Virus Infection in Adolescents and Adults: Screening (or Modifier) ([facility]) 08/17/1997 SDOH Screening Reminder: Annually for all adults ([facility]) 08/17/1997 Cervical Cancer Screenin-65 yrs of age (or Modifier) 08/17/2000 Cervical Cancer Screening: P ap every 3 yrs pts age 21-65 08/17/2000 Cervical Cancer: Pap Screeni ng with Modifier timing ([facility]) 08/17/2000 Cervical Cancer: hrHPV alone or with cotesting Pap for Pts 30-65yrs screening every 5yrs ([facility]) 08/17/2000 Tobacco Smoking Cessation: i n Adults excluding Women: Behavioral and Pharmacotherapy Interventions ([facility]) 03/21/2024 03/21/2023 Colorectal Cancer: FLEXIBLE SIGMOIDOSCOPY Screening every 5 yrs 08/17/2024 Colorectal Cancer: Fecal Immunochemical Test (FIT) Annually [facility] 08/17/2024 Colorectal Cancer: High-sensitivity gFOBT Screening Annually [facility] 08/17/2024 Colorectal Cancer: Stool Cologuard Screening every 3 yrs 08/17/2024 Colorectal Cancer:CT Colonography Screening every 5 yrs 08/17/2024 Flu Vaccination: Yearly for ages 18mos through 64 years (or Modifier)([facility]) 10/15/2024 COVID-19 Vaccine Screening: Initial Series and Booster Status ([facility]) ( - 2024- season) 2024 08/05/2020, 07/21/2020, 06/29/2020 Zoster/Shingles Vaccine Seri es Screening: Adults aged 18+ yrs (or HM Modifiers)([facility]) (1 of 2) 08/17/2029 DTaP/Tdap/Td Vaccines ([facility]) (3 - Td or Tdap) 08/22/2030 08/22/2020, 12/03/2010 Colorectal Cancer Screening 45 -75 Yrs (or HM Modifier) 10/18/2034 Colorectal Cancer: COLONOSCO PY Screening every 10 yrs (or Modifier) 10/18/2034 10/18/2024 Pneumococcal Vaccination Screening: Pts 0-19 & 19-49 yrs of age ([facility]) Aged Out 02/11/2023, 02/04/2019 No longer eligible based on patient's age to complete this topic Medical Devices Not on file Insurance [employer] Care Teams Vacuum Extractor Operator Relationship Specialty Start Date End Date Julia Heath NP [address] [place] [id number] PCP - Travel Coordinator 08/03/17
== END 2025-02-22 13:29 | disposition home or self-care (01) ==
LOC: HO.HOP 13:28
PROVIDERS: PCP Nurse Practitioner Family; Visit Provider Clinical Nurse Specialist Psychiatric/Mental Health
DX: F31.32 Bipolar disorder, current episode depressed, moderate (principal); F41.1 Generalized anxiety disorder; F90.2 Attention-deficit hyperactivity disorder, combined type; F43.21 Adjustment disorder with depressed mood
CPT/HCPCS: 98013